=== PATIENT | female | born 1970 ===

== ENCOUNTER 2021-05-13 08:27 | Inpatient (IN) ==
[2021-05-13] MEDS ORDERED: 0.9 % Sodium Chloride 1,000 ML ONE ×2 (08:36→08:39)
[2021-05-13] MEDS ORDERED: *HR* Ticagrelor 90 MG TABLET ONE ×2 (08:36→09:17)
[2021-05-13] MEDS ORDERED: *HR* Heparin 5,000 UNIT/ML VIAL ONE (08:36)
[2021-05-13] MEDS ORDERED: Nitroglycerin 1,000 MCG/5 ML VIAL IV ONE (08:39)
[2021-05-13] MEDS ORDERED: ISOVUE-370 200 ML INFUS..BTL ONE ×2 (08:39→08:45)
[2021-05-13] MEDS ORDERED: Heparin 1,000 UNITS/500 mL 500 ML ONE (08:39)
[2021-05-13] MEDS ORDERED: *HR* Heparin 10,000 UNIT/10 ML VIAL ONE (08:39)
[2021-05-13] MEDS ORDERED: *HR* FentaNYL (PF) 100 MCG/2 ML VIAL IVP ONE (08:43)
[2021-05-13] MEDS ORDERED: *HR* Midazolam HCl 2 MG/2 ML VIAL ONE (08:44)
[2021-05-13] MEDS ORDERED: *HR* FentaNYL (PF) 100 MCG/2 ML VIAL ONE ×3 (08:44→11:14)
[2021-05-13] MEDS ORDERED: Tirofiban 12.5 MG/250ML 12.5 MG/250 ML BAG ONE (08:46)
[2021-05-13 08:54] LABS: Basophils # 0.1 K/mcL (0.0-0.2); Basophils % 0.4 %; Eosinophils # 0.1 K/mcL (0.0-0.6); Eosinophils % 0.8 %; Hematocrit 47.3 % (35.3-44.9); Hemoglobin 14.3 g/dL (11.5-15.4); Immature Granulocytes % 0.7 % (0-4); Lymphocytes # 1.7 K/mcL (0.6-4.6); Lymphocytes % 12.7 %; Mean Corpuscular HGB Conc 30.2 g/dL (31.6-35.5); Mean Corpuscular Hemoglobin 27.6 pg (28.0-33.3); Mean Corpuscular Volume 91.3 fL (83.0-100.0); Mean Platelet Volume 8.9 fL (9.4-12.4); Monocytes # 0.4 K/mcL (0.0-1.3); Neutrophils # 10.9 K/mcL (1.6-8.9); Platelet Count 358 K/mcL (140-400); Red Blood Count 5.18 M/mcL (3.82-4.97); Red Cell Distribution Width 14.6 % (11.5-14.5); Segmented Neutrophils % 82.4 %; White Blood Count 13.3 K/mcL (4.3-11.1)
[2021-05-13] MEDS ORDERED: Furosemide 40 MG/4 ML VIAL ONE (08:55)
[2021-05-13] MEDS ORDERED: Ondansetron 4 MG/2 ML VIAL ONE (08:55)
[2021-05-13] MEDS ORDERED: Perflutren Lipid Microsphere 1.3 ML in 0.9 % Sodium Chloride 8.7 ML IVP PRN ×2 (09:01→09:22)
[2021-05-13] MEDS ORDERED: *HR* Atropine Sulfate 1 MG/10 ML SYRINGE ONE (09:01)
[2021-05-13 09:02] LABS: Prothrombin Time 11.4 Seconds (9.4-12.1)
[2021-05-13 09:17] LABS: Alanine Aminotransferase 14 Units/L (7-52); Albumin 3.8 g/dL (3.5-5.7); Albumin/Globulin Ratio 1.2 (1.1-2.2); Alkaline Phosphatase 60 Units/L (34-104); Aspartate Amino Transferase 13 Units/L (13-39); BUN/Creatinine Ratio 16 (6-26); Bilirubin,Indirect 0.3 mg/dL (0.0-1.0); Bilirubin,Total 0.3 mg/dL (0.3-1.0); Blood Urea Nitrogen 15 mg/dL (6-20); Calcium 9.4 mg/dL (8.6-10.3); Carbon Dioxide 24 mEq/L (23-29); Chloride 103 mEq/L (98-107); Globulin 3.3 g/dL (2.4-3.5); Glucose 206 mg/dL (70-105); Lipase 35 Units/L (11-82); Osmolality,Calculated 295 (280-300); Sodium 139 mEq/L (136-145); Total Protein 7.1 g/dL (6.4-8.9); Troponin I 0.03 ng/mL (< 0.04); eGFR For African Americans > 60 (> 60); eGFR For Non-African Americans > 60 (> 60)
[2021-05-13 09:18] LABS: Activated Partial Thrombo Time 126.7 Seconds (26.0-36.0)
[2021-05-13] MEDS ORDERED: Tirofiban 12.5 MG/250ML 12.5 MG/250 ML BAG IVC SCH (09:30)
[2021-05-13] MEDS ORDERED: Dextrose Gel 15 GM/37.5 ML TUBE PO PRN ×2 (14:44)
[2021-05-13] MEDS ORDERED: D5% in Water 1,000 ML IVC PRN (14:44)
[2021-05-13] MEDS ORDERED: *HR* Dextrose 50 % in Water (Vial) 50 ML VIAL IVP PRN (14:44)
[2021-05-13] MEDS: Metoprolol XL (24 HR) Succ 25 MG TAB.ER.24H PO SCH (15:03)
[2021-05-13] MEDS: Insulin LISPRO 300 UNITS/3 ML VIAL SUBQ SCH (17:27)
[2021-05-13] MEDS: Acetaminophen 325 MG TABLET PO PRN (18:01)
[2021-05-13] MEDS: *HR* Ticagrelor 90 MG TABLET PO SCH (20:11)
[2021-05-14 06:04] LABS: Basophils % 0.3 %; Eosinophils # 0.2 K/mcL (0.0-0.6); Eosinophils % 1.9 %; Hematocrit 36.8 % (35.3-44.9); Immature Granulocytes % 0.6 % (0-4); Lymphocytes # 2.9 K/mcL (0.6-4.6); Lymphocytes % 23.1 %; Mean Corpuscular HGB Conc 31.5 g/dL (31.6-35.5); Mean Corpuscular Hemoglobin 27.9 pg (28.0-33.3); Mean Corpuscular Volume 88.5 fL (83.0-100.0); Mean Platelet Volume 9.1 fL (9.4-12.4); Monocytes # 0.9 K/mcL (0.0-1.3); Monocytes % 7.2 %; Neutrophils # 8.4 K/mcL (1.6-8.9); Platelet Count 250 K/mcL (140-400); Red Blood Count 4.16 M/mcL (3.82-4.97); Red Cell Distribution Width 14.6 % (11.5-14.5); Segmented Neutrophils % 66.9 %; White Blood Count 12.6 K/mcL (4.3-11.1)
[2021-05-14] MEDS: Acetaminophen 325 MG TABLET PO PRN (06:07)
[2021-05-14 06:08] LABS: Hemoglobin 11.6 g/dL (11.5-15.4)
[2021-05-14 06:27] LABS: BUN/Creatinine Ratio 24 (6-26); Blood Urea Nitrogen 22 mg/dL (6-20); Calcium 8.3 mg/dL (8.6-10.3); Carbon Dioxide 23 mEq/L (23-29); Chloride 105 mEq/L (98-107); Glucose 135 mg/dL (70-105); Osmolality,Calculated 283 (280-300); Potassium 3.9 mEq/L (3.5-5.1); Sodium 134 mEq/L (136-145); eGFR For African Americans > 60 (> 60); eGFR For Non-African Americans > 60 (> 60)
[2021-05-14] MEDS: *HR* Ticagrelor 90 MG TABLET PO SCH (08:19)
[2021-05-14] MEDS: Insulin LISPRO 300 UNITS/3 ML VIAL SUBQ SCH (08:19)
[2021-05-14] MEDS ORDERED: lisinopriL 5 MG TABLET PO SCH (09:00)
[2021-05-14] MEDS ORDERED: Aspirin 81 MG TAB.CHEW PO SCH (09:00)
[2021-05-14 09:25] VITALS: BP 98/66
[2021-05-14] MEDS: Metoprolol XL (24 HR) Succ 25 MG TAB.ER.24H PO SCH (09:57)
== END 2021-05-14 11:05 | disposition left against medical advice (07) | DRG 174 ==
LOC: EMEROOARM 08:27 → ICNU 10:49
PROVIDERS: ADMIT Internal Medicine Cardiovascular Disease; ATTEND Internal Medicine Cardiovascular Disease